=== PATIENT | male | born 1975 | race Caucasian/White ===

== ENCOUNTER 2017-01-01 09:03 | Day surgery (SDC) | payer BC ==
[~2017-01-01] VITALS: Ht 203.2 cm; Wt 117.9 kg
== END 2017-01-01 11:05 | disposition short-term general hospital (02) ==
LOC: SURGOP 09:03
PROC: 0DBK8ZZ Excision of Ascending Colon, Via Natural or Artificial Opening Endoscopic (ICD-10-PCS; principal; 2017-01-01)
PROC: 0DBE8ZZ Excision of Large Intestine, Via Natural or Artificial Opening Endoscopic (ICD-10-PCS; 2017-01-01)
PROC: 0DBP8ZZ Excision of Rectum, Via Natural or Artificial Opening Endoscopic (ICD-10-PCS; 2017-01-01)
DX: Z12.11 Encounter for screening for malignant neoplasm of colon (principal); D12.2 Benign neoplasm of ascending colon; D12.6 Benign neoplasm of colon, unspecified; D12.8 Benign neoplasm of rectum; J30.9 Allergic rhinitis, unspecified; F17.210 Nicotine dependence, cigarettes, uncomplicated; Z79.899 Other long term (current) drug therapy; Z98.890 Other specified postprocedural states
CPT/HCPCS: J2175; J2250